=== PATIENT | male | born 1990 | race Caucasian/White ===

== ENCOUNTER → 2021-02-07 | Outpatient (CLI) | payer BC ==
[~2021-02-07] MED LIST: NOHOMEMEDICATIONS
== END ==
LOC: SJCVCIMAG 10:05
PROVIDERS: ATTEND Internal Medicine
DX: R00.0 Tachycardia, unspecified (principal); R06.00 Dyspnea, unspecified; I10 Essential (primary) hypertension; Z86.16 Personal history of COVID-19

== ENCOUNTER → 2021-02-10 | Outpatient (CLI) | payer BC | LOC: CAT 10:13 | PROVIDERS: ATTEND Internal Medicine | DX: U07.1 COVID-19 (principal); R07.2 Precordial pain; R06.02 Shortness of breath ==